=== PATIENT | female | born 1975 | race Asian ===

== ENCOUNTER 2017-04-18 21:41 | Emergency (ER) | payer OTHER ==
[2017-04-18 23:27] VITALS: BP 158/73
== END 2017-04-18 23:27 | disposition home or self-care (01) ==
LOC: ED 21:41
DX: S13.4XXA Sprain of ligaments of cervical spine, initial encounter (principal); S29.012A Strain of muscle and tendon of back wall of thorax, initial encounter; I10 Essential (primary) hypertension; V89.2XXA Person injured in unspecified motor-vehicle accident, traffic, initial encounter; Y93.89 Activity, other specified; Y92.89 Other specified places as the place of occurrence of the external cause; Y99.8 Other external cause status
CPT/HCPCS: 20552; J2001

== ENCOUNTER 2017-09-20 19:14 | Inpatient (IN) | payer OTHER ==
[~2017-09-20] VITALS: Ht 157.5 cm; Wt 71.2 kg
--- NOTE | 2017-09-20 20:39 | NUR ---
FIRST CONTACT. TO ORTHO ROOM. PREP FOR ERMD EVAL. PT STATES ONSET OF CP ON WEDNESDAY X 4 HOURS SUBSTERNAL AND HEAVY IN NATURE. PRESENTLY STATES PAIN RADIATES TO UPPER BACK. STATES KNOWN HX OF HTN AND TAKES BP MEDS AT PRESENT. DENIES ANY OTHER KNOWN PRECIPITATING FACTORS. DID STATE TODAY NOTED MILD SOB. COMFORT MEASURES AND SUPPORTIVE CARE INTIATED. PREP FOR ERMD EVAL.
--- NOTE | 2017-09-20 21:39 | NUR ---
RETURNED FROM CT. IVF INITIATED. COMFORT MEASURES AND SUPPORTIVE CARE CONTINUED. TO CONTINUE PLAN OF CARE. VSS. NAD.
[2017-09-20 21:54] LABS: BASOPHIL % 0.6 % (0-2); PLATELET COUNT 292 x10^3mcL (130-400)
[2017-09-20 22:00] LABS: CALCIUM 8.6 mg/dL (8.5-10.1); CARBON DIOXIDE 27.1 mmol/L (21-32); CHLORIDE SERUM 101 mmol/L (98-107); CREATININE SERUM 0.7 mg/dL (0.6-1.0); GFR1 > 60 mL/min; GLUCOSE SERUM 112 mg/dL (74-106); POTASSIUM SERUM 3.5 mmol/L (3.5-5.1); SODIUM SERUM 136 mmol/L (136-145)
[2017-09-20 22:02] LABS: RED CELL DISTRIBUTION WIDTH 14.6 % (11.5-14.5)
[2017-09-20 22:07] LABS: ALBUMIN 3.9 g/dL (3.4-5.0); ALKALINE PHOSPHATASE 55 U/L (46-116); ALT/SGPT 17 U/L (14-59); AST/SGOT 18 U/L (15-37)
[2017-09-20 22:10] LABS: TOTAL PROTEIN, SERUM 8.4 g/dL (6.4-8.2)
--- NOTE | 2017-09-20 22:37 | NUR ---
RETURNED FROM CT. SUPPORTIVE CARE CONTINUED. TO CONTINUE TO MONITOR. NO FURTHER ORDERS AT THIS TIME.
--- NOTE | 2017-09-21 01:56 | NUR ---
ARRIVED FROM ER VIA STRETCHER,PUT IN ROOM 238B, AND MADE COMFORTABLE.IAN LÓPEZ.CRISTY. WILL ADMIT PATIENT,PRIMARY NURSE.
[2017-09-21] MEDS ORDERED: NOR5 PO (01:58)
[2017-09-21 02:00] VITALS: BP 137/65
--- NOTE | 2017-09-21 02:13 | NUR ---
EXTENSION TUBING APPLIED TO HEPLOCK FOR EASIER HANDLING BOTH PATIENT AND NURSE.
--- NOTE | 2017-09-21 02:13 | NUR ---
CAREPLAN INITIATED QUICK START STARTED.
--- NOTE | 2017-09-21 02:33 | NUR ---
NEWLY ADMITTED 42 YEAR OLD [place], FEMALE, ALERT AND ORIENTED. PLEASANT AND COOPERATIVE. WHO CAME IN BECAUSE OF CHEST PAIN, SHORT OF BREATH, NAUSEA AND BACK PAIN. STILL C/O CHEST PRESSURE 6/10. HTN OF HTN AND CHRONIC SHOULDER PAIN. DENIES ANY BACK PAIN AT THIS TIME. TELE NO. 5. SB-56. LUNGS CLEAR ON AUSCULTATIONS BILATERALLY. DENIES ANY SOB NOTED. OFFERED 02 AND SHE REFUSED IT. STATED SHE IS NOT SHORT OF BREATH. TROP NEGATIVE. PT STATED SHE HAS CHEST PRESSURE FOR THE LAST 3DAYS. STARTED IV NS AT 100 ML PER HOUR INFUSING WELL IN THE LEFT AC. SKIN IS INTACT. MADE COMFORTABLE IN BED. CALL LIGHT WITHIN EASY REACH.
[2017-09-21 03:18] LABS: MAGNESIUM 2.2 mg/dL (1.8-2.4); PHOSPHOROUS 4.1 mg/dL (2.5-4.9)
[2017-09-21 03:28] LABS: FREE T4 0.94 ng/dL (0.76-1.46); FREE THYROXINE INDEX 3.1 ug/dL (1.4-4.5); T4(THYROXINE) 9.3 ug/dL (4.7-13.3)
[2017-09-21 04:23] LABS: T3 TOTAL 1.21 ng/mL
--- NOTE | 2017-09-21 04:55 | NUR ---
PT IS RESTING WELL, MADE COMFORTABLE IN BED CALL LIGHT WITHIN EASY REACH. WILL MONITOR.
--- NOTE | 2017-09-21 04:57 | NUR ---
PT IS RESTING. MADE COMFORTABLE IN BED. CALL LIGHT WITHIN EASY REACH. STILL HAS SOME MENTRATION. NOTED MODERATE VAGINAL BLEEDING. NO C/O PAIN.
[2017-09-21 05:51] VITALS: BP 113/52
--- NOTE | 2017-09-21 07:20 | NUR ---
RECEIVED Pt. AAOX4, RESPIRATIONS EVEN AND UNLABORED. DENIES PAIN/DISCOMFORT AT THIS TIME. DENIES CHEST PAIN/PRESSURE. NO DISTRESS NOTED. TELE IN PLACE. IVF RUNNING TO IV LEFT AC PATENT AND INTACT. BED LOW/LOCKED. CALL LIGHT IN REACH. WILL CONTINUE TO MONITOR.
[2017-09-21 08:34] LABS: microscopic required? YES; urine erythrocyte NEGATIVE (NEGATIVE)
[2017-09-21 08:54] LABS: AMPHETAMINE QUAL UR NONE DETECTED (NEG <=1000)
[2017-09-21 09:13] VITALS: BP 112/66
--- NOTE | 2017-09-21 10:01 | NUR ---
Pt. C/O NECK PAIN 3/10 SCALE TYLENOL ADMINISTERED.
--- NOTE | 2017-09-21 11:14 | NUR ---
Pt. REPORTED RELIEF POST TYLENOL 0/10 SCALE AT THIS TIME.
[2017-09-21 12:38] VITALS: BP 132/77
--- NOTE | 2017-09-21 14:00 | NUR ---
REPORTED UA RESULT TO DR. SON.
--- NOTE | 2017-09-21 18:37 | NUR ---
Pt. AAOX4 RESPIRATIONS EVEN AND UNLABORED. DENIES PAIN/DISCOMFORT. NO DISTRESS NOTED. DENIES CHEST PAIN/PRESSURE. TELE IN PLACE. IVF RUNNING TO IV LEFT AC PATENT AND INTACT. NO REACTION NOTED FROM IV LEVAQUIN. BED LOW/LOCKED. CALL LIGHT IN REACH.
--- NOTE | 2017-09-21 19:30 | NUR ---
PT IS ALERT AND ORIENTED X 4. PLEASANT AND COOPERATIVE. LUNGS CLEAR ON AUSCULTATIONS BILATERALLY UPPER AND LOWER BASES. ROM AIR. 02SAT 98%. BOWEL SOUNDS ACTIVE AND PRESENT. NO DISTENTION NOTED. PTIS AMBULATORY. DENIES ANY CHEST PAIN. STILL TAKING LEVAQUIN IVPB. FOR UTI. NO ADVERSE REACTION NOTED. PT IS AWARE THAT SHE WILL HAVE STRESS TEST IN AM AT 0900 AM. WILL MONITOR.
[2017-09-21 21:26] VITALS: BP 123/69
--- NOTE | 2017-09-22 04:53 | NUR ---
PT IS RESTING WELL. STILL HAS IV NS AT 80 ML PER HOUR INFUSING LEFT AC. PATENT AND INTACT. PT AMBULATORY. DENIES ANY PAIN. MADE COMFORTABLE IN BED. CALL LIGHT WIHTIN EASY REACH.
[2017-09-22 05:24] VITALS: BP 99/58
[2017-09-22 06:06] LABS: BASOPHIL % 0.4 % (0-2); PLATELET COUNT 277 x10^3mcL (130-400); RED CELL DISTRIBUTION WIDTH 14.5 % (11.5-14.5)
[2017-09-22 06:47] LABS: CALCIUM 8.4 mg/dL (8.5-10.1); CARBON DIOXIDE 25.4 mmol/L (21-32); CHLORIDE SERUM 104 mmol/L (98-107); CHOLESTEROL 168 mg/dL (<200); CHOLESTEROL/HDL RATIO 4.1; CREATININE SERUM 0.7 mg/dL (0.6-1.0); GFR1 > 60 mL/min; GLUCOSE SERUM 92 mg/dL (74-106); HDL CHOLESTEROL 41 mg/dL (40-60); MAGNESIUM 1.9 mg/dL (1.8-2.4); PHOSPHOROUS 4.5 mg/dL (2.5-4.9); POTASSIUM SERUM 3.8 mmol/L (3.5-5.1); SODIUM SERUM 139 mmol/L (136-145); TRIGLYCERIDES 103 mg/dL (<150)
--- NOTE | 2017-09-22 07:27 | NUR ---
RECEIVED PT FROM NIGHT NURSE IN NO ACUTE DISTRESS. PT RESTING IN BED, AAOX4, RESPIRATIONS EVEN AND UNLABORED ON RA. IVF INFUSING AT BEDSIDE. BED IN LOWEST POSITION. CALL LIGHT WITHIN REACH. WILL CONTINUE TO MONITOR.
--- NOTE | 2017-09-22 08:18 | NUR ---
PT TAKEN DOWN FOR STRESS TEST VIA WHEEL CHAIR. PT HEPLOCKED.
--- NOTE | 2017-09-22 10:03 | NUR ---
PT RETURNED FROM STRESS TEST PROCEDURE VIA WHEELCHAIR IN NO ACUTE DISTRESS. RESPIRATIONS EVEN AND UNLABORED ON RA, AAOX4. VITALS STABLE, BP 114/73, HR 74, SPO2 98%. IVF INFUSING. WILL CONTINUE TO MONITOR.
[2017-09-22] MEDS ORDERED: LAC PO (10:16)
[2017-09-22] MEDS ORDERED: LEVAQUIN250 M1 PO (10:16)
[2017-09-22] MEDS ORDERED: ZES5 PO (10:19)
[2017-09-22] MEDS ORDERED: NOR5 PO (10:21)
[2017-09-22 11:09] VITALS: BP 114/74
[2017-09-22 11:52] VITALS: BP 100/47
--- NOTE | 2017-09-22 12:53 | NUR ---
PT D/C TO HOME IN NO ACUTE DISTRESS. RESPIRATIONS EVEN AND UNALBORED ON RA, AAOX4. IV D/C INTACT, TELE REMOVED. PT GIVEN NEW PRESCRIPTIONS, GIVEN D/C ISNTRUCTIONS, INSTRUCTED TO FOLLOW UP WITH PCP. PT ESCORTED TO D/C OFFICE BY ELIO GABRIEL, ASMITA.
== END 2017-09-22 12:53 | disposition home or self-care (01) | DRG 206 ==
LOC: ED 19:14 → DU 09-21 00:59
PROVIDERS: Specialist; ADMIT Family Medicine
DX: M94.0 Chondrocostal junction syndrome [Tietze] (principal); N39.0 Urinary tract infection, site not specified; I10 Essential (primary) hypertension; E78.5 Hyperlipidemia, unspecified; D64.9 Anemia, unspecified; E02 Subclinical iodine-deficiency hypothyroidism; Z68.28 Body mass index [BMI] 28.0-28.9, adult; D72.829 Elevated white blood cell count, unspecified; R73.03 Prediabetes; I08.1 Rheumatic disorders of both mitral and tricuspid valves
CPT/HCPCS: 83880; 84439; J1956; J7030; Q0092; Q9967